=== PATIENT | female | born 1990 | race Caucasian/White ===

== ENCOUNTER 2019-08-01 17:41 | Emergency (ER) | payer OTHER ==
[2019-08-01 17:52] VITALS: BP 134/60; PULSE 64; TEMP 98.5; BMI 22.9
== END 2019-08-01 18:00 | disposition left against medical advice (07) ==
LOC: JER 17:41
DX: Z53.21 Procedure and treatment not carried out due to patient leaving prior to being seen by health care provider (principal)
CPT/HCPCS: 99281-25